=== PATIENT | male | born 1995 | race Two or more races ===

== ENCOUNTER 2017-07-25 10:30 | Emergency (ER) | payer MEDICAID ==
[2017-07-25 10:36] VITALS: TEMP 97.5
[2017-07-25] MEDS ORDERED: LIDOCAINE 5% 1 EA PATCH TD SCH (11:15)
[2017-07-25] MEDS ORDERED: DEXAMETHASONE 4 MG TAB PO ONE (11:23)
--- NOTE | 2017-07-25 11:41 | EDPHY ---
General - History Smoking Status: Never smoked Narrative: CHIEF COMPLAINT: Low back pain HISTORY OF PRESENT ILLNESS: Patient complains of low back pain and neck pain. The pain has been present for months. It is primarily in the low back but the neck pain has been increasing. The neck pain involves the trapezius muscles but no midline tenderness. The lumbar pain is midline and radiates to the left leg. He has had no numbness or tingling of the leg. He has had no saddle anesthesia. No incontinence of bowel or bladder. No weakness of the arms. No trauma or injury. He has been evaluated MRI within the past year that showed disc bulge at L4. He has no difficulty ambulating but has severe pain. He has been taking Ganado as prescribed as well as Flexeril as prescribed. He has been seen at [facility] but not recently. Pain has been increasing to the point that he is having difficulty sleeping. No other associated complaints or modifying factors. ESTABLISHED ORTHOPEDIST: None REVIEW OF SYSTEMS: Ten systems reviewed and are negative unless otherwise noted in the HPI PAST MEDICAL HISTORY: Low back pain PAST SURGICAL HISTORY: None SOCIAL HISTORY: Occasional smoker. Occasional marijuana use. Denies IV drug use. FAMILY HISTORY: Noncontributory EXAMINATION General Appearance: Alert, no distress Neck: Soft tissue tenderness of the trapezius muscle, left greater than right. No midline tenderness. No crepitus, step-off or deformity. Cardiovascular: Symmetric radial pulses 2+. Symmetric DP pulses 2+. Brisk cap refill Back: Tenderness to palpation of the lumbar musculature. No midline tenderness , crepitus, step-off or deformity. Neurological: A&O, sensory symmetric, want ad clerk strength symmetric. hip, knee and ankle strength symmetric. No foot drop. Patellar reflexes symmetric. Skin: Warm and dry, no rash no petechiae or purpura. Extremities: Nontender, no pedal edema Psychiatric: Mood and affect normal DIFFERENTIAL DIAGNOSES: Including but not limited to lumbar radiculopathy, lumbar strain, cervical radiculopathy, cervical strain, discopathy, epidural abscess MDM: 11:20 a.m. Low back pain with left-sided radiculopathy. He does have an MRI within the past year showing disc bulge at L4-L5. Normal neuro examination without deficit. No suspicion for epidural abscess by history examination. No incontinence of bowel or bladder. No saddle anesthesia. Patient says that he has been on hydrocodone, but I have reviewed his prescription monitoring program reported I do not see any medications in the past year. I will discuss this with him. In the meantime and lidocaine patches been applied and I have ordered Decadron by mouth. 11:39 a.m. I discussed this with the patient and he says that his name is actually spelled wrong on the admission. I have researched under the proper spelling, and I have found 1 prescription from March. This is in concurrence with what he says that he has. I will provide a short course of 1 time pain medication prescription. Continue with short bursts of steroid, primary care referral to discuss the possibility of neurosurgery follow-up. At this time he has no evidence of acute cord compression or cauda equina. We did discussed ED precautions for worsening pain, numbness, tingling, weakness. He is comfortable with this plan and discharged home stable condition. SUPERVISION: This patient was independently evaluated without direct involvement of or examination by the attending physician. ED Precautions: Worsening pain. Erythema, edema, cyanosis, pallor, paresthesia or anesthesia. (Ritesh Angelo) The patient was evaluated and managed by the physician certified dental assistant. I have reviewed this chart and I agree with the findings and plan of care as documented , as indicated by my signature. I am the secondary supervising physician. ( Shanti Arreola) - Objective Vital Signs: Initial Vital Signs Temperature (C) 36.4 C 07/25/17 10:33 Heart Rate 72 07/25/17 10:33 Respiratory Rate 18 07/25/17 10:33 Blood Pressure 101/79 07/25/17 10:33 O2 Sat (%) 99 07/25/17 10:33 O2 Delivery Mode Room Air Allergies/Adverse Reactions: No Known Allergies Allergy (Unverified 07/25/17 10:33) Home Medications: Medication Instructions Recorded Dexamethasone [Decadron 4 MG (*)] 8 mg PO DAILY #2 tab 07/25/17 oxyCODONE HCL/ACETAMINOPHEN 1 each PO Q4-6PRN PRN #7 tablet 07/25/17 [Percocet 5-325 mg Tablet] Medications Given: Discontinued Medications Dexamethasone (Decadron) 8 mg PO EDNOW ONE Stop: 07/25/17 11:24 Last Admin: 07/25/17 12:08 Dose: 8 mg Lidocaine (Lidoderm 5%) 1 ea TD DAILY [place]O Stop: 01/21/18 11:14 Last Admin: 07/25/17 11:12 Dose: 1 ea Departure - Departure Disposition: Home, Routine, Self-Care Clinical Impression: Lumbar radicular pain Condition: Good Instructions: Lumbar Disc Herniation (ED), Lumbar Radiculopathy (ED) Additional Instructions: 1. Medications as prescribed as needed 2. Contact the physicians as provided for outpatient follow-up early next week 3. Return to emergency department immediately for worsening pain, numbness, tingling, weakness, incontinence or difficulty urinating Referrals: [facility],. [Clinic] - As per Instructions Connor Chan DO [Doctor of Osteopathy] - As per Instructions Stand Alone Forms: Narcotic Guidelines Prescriptions: Dexamethasone [Decadron 4 MG (*)] 8 mg PO DAILY #2 tab oxyCODONE HCL/ACETAMINOPHEN [Percocet 5-325 mg Tablet] 1 each PO Q4-6PRN PRN #7 tablet PRN Reason: Pain, Breakthrough
[2017-07-25 12:13] VITALS: BP 116/93; PULSE 86; RESP 16; O2SAT 96
[2017-07-25] MEDS ORDERED: PATCH REMOVAL 1 EA PATCH TD SCH (21:00)
== END 2017-07-25 12:12 | disposition home or self-care (01) ==
DX: M54.16 Radiculopathy, lumbar region (principal); F17.200 Nicotine dependence, unspecified, uncomplicated